=== PATIENT | female | born 1975 | race Caucasian/White ===

== ENCOUNTER 2022-01-07 10:52 | Outpatient (REF) | payer OTHER, SELFPAY ==
[2022-01-07 15:13] LABS: Bacteria Few HPF (Negative); Crystals Negative HPF (Negative); Epithelial Cells Moderate HPF (Negative); Mucus Trace (Negative)
[2022-01-07 15:14] LABS: C & S Indicated? C&S Done As Ordered; Casts Negative LPF (Negative)
== END 2022-01-07 10:53 | disposition home or self-care (01) ==
LOC: LBN 10:52
PROVIDERS: Visit Provider Physician Assistant Medical
DX: R30.0 Dysuria (principal)
CPT/HCPCS: 87077; 81015; 87086; 87186

== ENCOUNTER 2022-03-18 13:06 | Outpatient (REF) | payer OTHER, SELFPAY ==
[2022-03-18 16:02] LABS: Bacteria Many HPF (Negative); Crystals Few Calcium Oxalate HPF (Negative); Epithelial Cells Few HPF (Negative); Mucus Negative (Negative); WBC >50 HPF (0-5)
[2022-03-18 16:03] LABS: C & S Indicated? C&S Done As Ordered
== END 2022-03-18 13:07 | disposition home or self-care (01) ==
LOC: LBN 13:06
PROVIDERS: Visit Provider Physician Assistant Medical
DX: N39.0 Urinary tract infection, site not specified (principal)
CPT/HCPCS: 87077; 81015; 87086; 87186

== ENCOUNTER → 2022-05-04 02:22 | Outpatient (CLI) | payer OTHER, SELFPAY ==
--- NOTE | 2022-05-04 08:00 | DI.RAD_ITS ---
Exam(s) XR CHEST 2V PA LATERAL EXAM: XR CHEST 2V PA LATERAL CLINICAL HISTORY: dyspnea and cough, rule out pneumonia, ASTHMA, SEVERE, PERSIST, J45.50 TECHNIQUE: 2D digital imaging was performed of the chest. Two images were obtained. PA and lateral views were obtained. COMPARISON: No exams were available for comparison FINDINGS: MEDIASTINUM: Normal. HEART: Normal. PULMONARY VASCULATURE: Normal. LUNGS: Clear. PLEURAL SPACE: No pleural effusion or pneumothorax. BONE:Within normal limits for the patient's age. OTHER FINDINGS:Normal. IMPRESSION: No acute pulmonary findings. DATA REPOSITORY: RADIATION DOSE DELIVERED:
== END ==
PROVIDERS: PCP Physician Assistant Medical; Visit Provider Student in an Organized Health Care Education/Training Program
DX: J45.50 Severe persistent asthma, uncomplicated (principal); R06.09 Other forms of dyspnea
CPT/HCPCS: 71046

== ENCOUNTER 2022-05-04 16:47 | Outpatient (CLI) | payer OTHER, SELFPAY ==
[2022-05-04 14:59] LABS: Abs Immature Grans 0.02 10^3/uL (0.0-0.06); Absolute Basophil Count 0.06 10^3/uL (0.0-0.2); Absolute Eosinophil Count 0.51 10^3/uL (0.0-0.7); Absolute Lymphocyte Count 3.15 10^3/uL (1.2-3.4); Absolute Monocyte Count 0.86 10^3/uL (0.1-0.8); Absolute Neutrophil Count 4.42 10^3/uL (1.2-6.7); Basophils % 0.7; Eosinophils % 5.7; HCT 40.7 % (36.0-46.0); HGB 13.3 g/dL (11.2-15.7); Immature Grans % 0.2; Lymphocytes % 34.9; MCH 29.4 pg (27.0-33.0); MCHC 32.7 % (32.0-36.0); MCV 90 fL (80-95); MPV 11.1 fL (8.0-11.0); Monocytes % 9.5; Platelet Count 293 10^3/uL (130-400); RBC 4.53 10^6/uL (3.93-5.22); RDW 12.4 % (11.7-14.6); RDW-SD 40.9 fL; WBC 9.02 10^3/uL (4.4-10.8)
[2022-05-05 10:24] LABS: IgE 80 IU/mL (<158)
== END 2022-05-04 16:48 | disposition home or self-care (01) ==
LOC: LBO 16:48
PROVIDERS: PCP Physician Assistant Medical; Visit Provider Student in an Organized Health Care Education/Training Program
DX: J45.50 Severe persistent asthma, uncomplicated (principal)
CPT/HCPCS: 36415; 82785; 85025

== ENCOUNTER 2022-05-14 02:48 | Outpatient (CLI) | payer OTHER, SELFPAY ==
[2022-05-14] MEDS: Albuterol HFA 18 GM 200 PUFF INH IH (11:26)
[2022-05-14] MEDS: Inhaler, Assist Device 1 EACH MC (11:27)
--- NOTE | 2022-05-17 09:39 | W.PFT ---
Date of service: 05/14/22 Time of Service: 10:07 Pulmonary Function Test Result Requesting Provider Jeannine Indications: Asthma Interpretation Spirometry: There is no airflow limiation. There is no significant bronchodilator response. Lung Volumes: Lung volumes are normal. Diffusion Capacity: Normal diffusion. Airway Pressure: Normal airways resistance. Impression Normal pulmonary function testing. Clinical Correlation therefore is recommended.
== END 2022-05-14 02:49 | disposition home or self-care (01) ==
LOC: RT 02:49
PROVIDERS: PCP Physician Assistant Medical; Visit Provider Student in an Organized Health Care Education/Training Program
DX: J45.50 Severe persistent asthma, uncomplicated (principal)
CPT/HCPCS: 94060; 94726; 94729

== ENCOUNTER 2022-05-24 13:34 | Outpatient (REF) | payer OTHER, SELFPAY ==
[2022-05-24 18:29] LABS: ALT 44 U/L (14-59); AST 21 U/L (15-37); Albumin 3.4 g/dL (3.4-5.0); Alkaline Phosphatase 78 U/L (46-116); BUN 10 mg/dL (7-18); Bilirubin, Total 0.7 mg/dL (0.2-1.0); CREATININE 0.7 mg/dL (0.55-1.02); Calcium 8.9 mg/dL (8.5-10.1); Calculated LDL 79 mg/dL (<100); Chloride 102 mmol/L (98-107); Cholesterol 172 mg/dL (<200); Estimated GFR 107.28 (mL/min/1.73m2); Glucose 75 mg/dL (74-106); HDL Cholesterol 67 mg/dL (40-60); Potassium 3.7 mmol/L (3.5-5.1); Sodium 140 mmol/L (136-145); Total Protein 7.5 g/dL (6.4-8.2); Triglyceride 134 mg/dL (<150)
== END 2022-05-24 13:35 | disposition home or self-care (01) ==
LOC: NCHCN 13:34
PROVIDERS: PCP Physician Assistant Medical; Visit Provider Nurse Practitioner Family
DX: I10 Essential (primary) hypertension (principal)
CPT/HCPCS: 80053; 80061

== ENCOUNTER 2022-09-08 14:31 | Outpatient (REF) | payer OTHER, SELFPAY ==
--- NOTE | 2022-09-08 14:00 | PAPFT_PTH ---
PATIENT: Jessica Garcia LOC: [facility] U#:[id number] AGE/SX: 46/F ROOM: RE09/08/[address]: Nikki Pearson MD : [id number] BED: DIS: 09/08/2022 SPEC #: [id number] RECD: 09/08/22 17:48 STATUS: JOSE CARLOS REQ #: [id number] ALTHEA: 09/08/22 14:[address]: Nikki Pearson DEPT: [facility] Cytology RECD BY: Allison Young ENTERED: 09/08/22 17:48 SP TYPE: PAPFT OTHR DR: Roxi Crespo Tissues: 1 - CX/ENDOCX FOR PAP SMEARS Procedures: PAP THIN PREP/[facility] Screening HPV DNA PROBE Comments: [id number] (HPV 16 & 18/45)
== END 2022-09-08 14:32 | disposition home or self-care (01) ==
LOC: LBN 14:31
PROVIDERS: PCP Physician Assistant Medical; Visit Provider Obstetrics & Gynecology
DX: Z12.4 Encounter for screening for malignant neoplasm of cervix (principal); Z11.51 Encounter for screening for human papillomavirus (HPV); R87.810 Cervical high risk human papillomavirus (HPV) DNA test positive; Z87.42 Personal history of other diseases of the female genital tract
CPT/HCPCS: 88142; 87624